=== PATIENT | female | born 1955 | race Caucasian/White ===

== ENCOUNTER 2017-04-03 14:02 | Emergency (ER) | payer SELFPAY ==
[2017-04-03] MEDS ORDERED: EPINEPHrine INJ 0.1 MG/ML 10 ML SYG INJ ONE (14:07)
[2017-04-03] MEDS ORDERED: SODIUM BICARBONATE SYRINGE 50 MEQ/50 ML SYG IV ONE (14:08)
[2017-04-03] MEDS ORDERED: DEXTROSE 50% 25 GM/50 ML SYG IV ONE (14:08)
[2017-04-03] MEDS ORDERED: NOREPINEPHRINE BITARTRATE 4 MG in DEXTROSE 5% 250ML 250 ML IVPB ONE (14:20)
[2017-04-03] MEDS ORDERED: SODIUM CHLORIDE 0.9% 1000ML 1,000 ML IVS ONE (14:35)
--- NOTE | 2017-04-03 15:05 | RAD ---
Procedure: XR CHEST 1 VIEW Exam Date: 04/03/2017 2:44 PM [facility] SHARED SERVICES CONSULTANT Ordering Provider: Lino Serna Clinical Indication: intubation Comparison: 2016 Findings: ET tube tip terminates at the level of the clavicles. Right-sided IJ catheter is present with the tip in the mid SVC. Small right-sided pleural effusion is present with associated compressive atelectasis. Hazy, groundglass attenuation of the lungs is noted. There is no pneumothorax. Heart size is upper limits of normal. Impression: Support apparatus in expected position. Pulmonary edema/volume overload. Small right-sided pleural effusion with associated compressive atelectasis. Electronically signed by: Gustavo Bartlett MD 04/03/2017 3:04 PM [facility] SHARED SERVICES CONSULTANT
[2017-04-03] MEDS ORDERED: PROPOFOL 200 MG/20 ML VIAL IV ONE (15:32)
[2017-04-03] MEDS ORDERED: SODIUM CHLORIDE 0.9% 100ML 100 ML IVPB ONE (15:44)
[2017-04-03] MEDS ORDERED: VECURONIUM BROMIDE IV ONE (15:52)
[2017-04-03] MEDS ORDERED: SODIUM CHLORIDE 0.9% IV ONE (15:52)
[2017-04-03] MEDS ORDERED: cefTRIAXone SODIUM 1 GM VIAL ONE ×2 (16:01)
[2017-04-03] MEDS ORDERED: SODIUM CHL 0.9% 50ML MIN-BAG+ 50 ML IVPB ONE (16:02)
[2017-04-03] MEDS ORDERED: AZITHROMYCIN IV 500 MG VIAL IVPB ONE (16:02)
[2017-04-03] MEDS ORDERED: SODIUM CHLORIDE 0.9% 250ML 250 ML ONE (16:02)
--- NOTE | 2017-04-03 16:02 | ED.PDOC ---
History of Present Illness - General Chief Complaint: Unresponsive Time Seen by Provider: 04/03/17 15:07 Exam Limitations: clinical condition Additional Information: CARDIORESP ARREST. SON RELATES HE THOUGHT HIS MOM WAS SLEEPING IN. WHEN HE WENT TO WAKE HER UP SHE WAS CYANOTIC WITH AGONAL RESPIRATIONS. EMS ARRIVED TO FIND PT IN [facility]. D/C SHOCK CONVERTED PT TO [facility]. CPR WAS STARTED AND PT WAS INTUBATED AND TRANSPORTED. ARRIVED WITH CPR IN PROGRESS. - History of Present Illness Allergies/Adverse Reactions: Allergies NO KNOWN ALLERGY Allergy (Verified 04/06/15 21:49) Home Medications: Ambulatory Orders Ondansetron [Zofran Odt] 4 mg PO BID PRN #7 tab 04/07/15 Tramadol HCl 50 mg PO QID PRN #20 tab 04/07/15 Review of Systems - Review of Systems Unable to Obtain Due To: intubated, clinical condition Past Medical History (General) - Patient Medical History Hx Cardiac Disorders: Yes Hx Congestive Heart Failure: No Hx Diabetes: Yes Hx Other PMH: Yes - SZ - Vaccination History Hx Tetanus, Diphtheria Vaccination: No Hx Influenza Vaccination: Yes Hx Pneumococcal Vaccination: Yes - Social History Hx Tobacco Use: No Hx Alcohol Use: No Hx Substance Use: No Hx Substance Use Treatment: No Hx Depression: No Feels Threatened In Home Enviroment: No Feels Threatened In a Relationship: No - Female History Patient is a Female of Child Bearing Age (10 -59 yrs old): No Patient : No Family Medical History - Family History Mother Family History: Unknown Living Status: Unknown Physical Exam - Physical Exam General Appearance: Obese Eye Exam: bilateral normal - PINPOINT AND NON REACTIVE Ears, Nose, Throat: normal ENT inspection, other - ETT IN PLACE (7.0) Neck: other - NO MASSES. NO NECK VEIN DISTENTION Respiratory: other - BS PRESENT BILATERALLY WITH BAGGING. Cardiovascular/Chest: other - NO PULSE Gastrointestinal/Abdominal: soft, no organomegaly Back Exam: normal inspection Extremity: other - MOTTLED LADY FEET AND DISTAL LOWER LEGS, FAMILY STATES COLOR IS NL HOWEVER NO PALPABLE PEDAL PULSES AND SKIN IS COOL. Neurologic: other - GCS 3 Skin Exam: pallor Lymphatic: no adenopathy Progress - Progress Progress: PT ARRIVED WITH CPR IN PROGRESS. WERE ABLE TO RE-ESTABLISH PULSE AFTER EPI, BICARB. BP STABALIZED WITH LEVOPHED. 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 FLUID RESUSCITATION WAS ACCOMPLISHED AND PT WAS STABLE WITH CO2 30'S, SATS LESS THAN 100 BUT OK, AND SBP 120'S. HAD DISCUSSION WITH FAMILY THEY WOULD PREFER PT BE TRANSFERED TO [place]. 04/03/17 16:01 D/[facility] 04/03/17 16:16 RESP CALLED. HAVING TO BAG PT TO KEEP SATS >80. LADY BS PRESENT. PROLONGED EXP PHASE, I/E WHEEZES AND DIFFUSE RALES. HAS GOTTEN LOVENOX BUT NOT LASIX. WILL GIVE LASIX AND TX. REPEAT CXR AND OBSERVE CLOSELY, PULSE BP CURRENTLY STABLE. 04/03/17 16:54 D/W DR DONNELLY AND DR ALANIZ PT HAS BECOME UNSTABLE BOTH WITH LOW SATS AND EPISODES OF HYPOTENSION. NO ECHO HERE ATTEMPTED BS US WITH SONOSITE FELT NOT TO BE ADEQUATE TO DIAGNOSE PERICARDIAL EFFUSION. NO EXTREMELY LARGE EFFUSION AND POOR CONTRACTILITY NOTED. PT CANNOT GO FOR CT ANGIO XRAY STATES CANNOT DO CHEST WITH CONTRAST FROM CENTRAL LINE AND HAVE THUS FAR NOT BEEN ABLE TO OBTAIN PERIPHERAL ACCESS AND HELICOPTER LANDING. DISCOLORATION HAS PROGRESSED AND NOW EXTENDS PROXIMAL TO KNEE. LOVENOX HAS BEEN GIVEN LIKELY DIAGNOSIS AT THIS TIME IS LARGE PULMONARY EMBOLUS. D/W DR ALANIZ POSSIBILITY OF TPA BUT HE PREFERS WE GO AHEAD AND GET HER ENROUTE. ATTEMPTED TO CALL FAMILY AND UPDATE THEM HOWEVER VOICE MAIL IS NOT ACTIVE AND THEY DID NOT ANSWER. 04/03/17 17:24 AIR EVAC HERE. OG PLACED AND PT HAS BEEN LOADED - EKG/XRAY/CT EKG: Sinus - RATE 93, NL AXIS, NL INTERVALS, , nonspecific ST T wave Chg - NO [id number]. , Unchanged from - 04/06/15 XRAY: chest - 1-R PLEURAL EFFUSION, PULMONARY EDEMA, CENTRAL LINE IN PLACE, NO PTX, 2- NO CHANGE. Procedures - Central Line Right Internal jugular vein Central Line Lumen: triple Central Line Procedure Prep: betadine prep, sterile drapes applied, sterile dressing applied Anesthesia: NONE Complications: none Central Line Post Position: sutured, good blood return, position confirmed w/ CXR - US CONFIRMED, IMAGES NOT SAVED - Additional Procedures Additional Procedures: CPR, cardioversion/defib Departure - Departure Clinical Impression: Cardiac arrest, Hypoxemia Hypotension Qualifiers: Hypotension type: unspecified hypotension type Qualified Code(s): I95.9 - Hypotension, unspecified Time of Disposition: 17:35 Disposition: Transfer to Hospital Condition: Serious Departure Forms: ED Discharge - Pt. Copy, Patient Portal Self Enrollment Referrals: Sy Hussein III, MD [Primary Care Provider] - 1-2 Weeks Home Medications: Ambulatory Orders Ondansetron [Zofran Odt] 4 mg PO BID PRN #7 tab 04/07/15 Tramadol HCl 50 mg PO QID PRN #20 tab 04/07/15 Critical Care Note - Critical Care Note Total Time (mins): 120 Comments: EVENT: CARDIORESP ARREST FINDINGS: CPR, SATS 60-80, BP'S 60S ANDI: CARDIOVASCULAR, RESP, NEURO INTERVENTIONS: CPR MANAGEMENT, CENTRAL LINE PLACEMENT, MONITORING, REASSESSMENTS , CONSULTATIONS AND ARRANGEMENTS FOR TRANFER.
[2017-04-03] MEDS ORDERED: ENOXAPARIN SODIUM 100 MG/ML SYG SUBCU ONE (16:05)
[2017-04-03] MEDS ORDERED: IPRATROPIUM/ALBUTEROL 3 ML VIAL NEB ONE ×2 (16:16→18:15)
[2017-04-03] MEDS ORDERED: SODIUM CHLORIDE 0.9% 1000ML 1,000 ML ONE (16:18)
[2017-04-03] MEDS: FUROSEMIDE INJ 20 MG/2 ML VIAL IV ONE (16:25)
[2017-04-03] MEDS ORDERED: DOPamine PREMIX 250 ML IVPB ONE (16:47)
--- NOTE | 2017-04-03 16:54 | RAD ---
EXAM DESCRIPTION: Chest,1 View CLINICAL HISTORY: 61 years Female REPEAT COMPARISON: 04/03/2017 FINDINGS: Cardiac enlargement. Infiltrate or atelectasis in the right lung base with a moderate right pleural effusion. Small left pleural effusion is suspected. Interstitial markings are prominent. IJ catheter with the tip in the SVC. ET tube 4.5 cm above the matilde. IMPRESSION: Endotracheal tube 4.5 cm above the matilde Cardiac enlargement with prominent interstitial markings Moderate right and probable small left pleural effusion with right basilar infiltrate or atelectasis Electronically signed by: Sandrita Larson 04/03/2017 4:[address] [facility]
[2017-04-03] MEDS: cefTRIAXone SODIUM 1 GM in SODIUM CHL 0.9% 50ML MIN-BAG+ 50 ML IVPB ONE (17:30)
[2017-04-04 08:37] VITALS: BP 133/88; O2SAT 88
[2017-04-04 08:40] VITALS: TEMP 97.4
[2017-04-04] MEDS: AZITHROMYCIN IV 500 MG in SODIUM CHLORIDE 0.9% 250ML 250 ML IVPB ONE (09:20)
== END 2017-04-03 17:40 | disposition short-term general hospital (02) ==
LOC: ER 14:02
DX: I46.9 Cardiac arrest, cause unspecified (principal); R09.02 Hypoxemia; I95.9 Hypotension, unspecified
CPT/HCPCS: 36415; 36600; 71045; 80053; 82550; 82553; 82803; 82805; 83605; 83880; 84484; 85025; 85379; 85610; 85730; 87040; 92950; 93005; 94002; 94640; 94770; J0456; J0696; J1265; J1940; J3490; J7030; J7050; J7060; J7620; J7799